=== PATIENT | male | born 1945 | race Caucasian/White ===

== ENCOUNTER 2016-06-08 23:58 | Emergency (ER) | payer MEDICARE ==
[~2016-06-08] VITALS: Ht 177.8 cm; Wt 88.9 kg
[2016-06-09 01:15] VITALS: BP 129/59
== END 2016-06-09 01:29 | disposition home or self-care (01) ==
LOC: ED 23:59
DX: R33.0 Drug induced retention of urine (principal)
CPT/HCPCS: 51702; 99284

== ENCOUNTER 2016-06-09 04:54 | Emergency (ER) | payer MEDICARE ==
[~2016-06-09] VITALS: Ht 177.8 cm; Wt 88.6 kg
[2016-06-09] MEDS ORDERED: SODIUM CHLORIDE 0.9% 1,000ML IVBOLUS ONE (08:00)
[2016-06-09 08:11] VITALS: BP 145/87
== END 2016-06-09 08:15 | disposition home or self-care (01) ==
LOC: ED 04:57
DX: R33.9 Retention of urine, unspecified (principal)
CPT/HCPCS: 51702; 99284